=== PATIENT | male | born 1940 | race Caucasian/White ===

== ENCOUNTER 2023-02-12 21:31 | Inpatient (IN) | payer MEDICARE ==
[2023-02-13] MEDS ORDERED: Ondansetron ODT 4 MG TAB PO PRN (01:15)
[2023-02-13] MEDS ORDERED: Acetaminophen 650 MG Suppository PR PRN (01:15)
[2023-02-13] MEDS ORDERED: Ondansetron PF 4 MG/2 ML Vial IVP PRN (01:15)
[2023-02-13] MEDS ORDERED: Dextrose 50% Abboject 50 ML SYRINGE SLOW IVP PRN (01:18)
[2023-02-13] MEDS ORDERED: Dextrose 5% in Water 1,000 ML IV PRN (01:18)
[2023-02-13] MEDS ORDERED: HumaLOG 300 UNITS/3 ML VIAL SC PRN (01:18)
[2023-02-13] MEDS ORDERED: Morphine 4 MG/ML VIAL SLOW IVP PRN (01:19)
[2023-02-13] MEDS ORDERED: Sodium Chloride 0.9% 1,000 ML IV SCH (01:30)
[2023-02-13] MEDS: metroNIDAZOLE 500 MG in Premix Bag 1 BAG IVPB SCH ×2 (01:46→08:50)
[2023-02-13 03:22] VITALS: BMI 28.5
[2023-02-13 06:34] LABS: #Lymphocytes 1.5 thou/uL (1.20-3.40); #Monocytes 1.3 thou/uL (0.11-0.59); #Neutrophils 16.5 thou/uL (1.40-6.50); %Basophils 0.1 % (0.0-1.0); %Eosinophils 0.1 % (0.0-10.0); %Lymphocytes 7.8 % (21.0-51.0); %Monocytes 6.6 % (0.0-10.0); %Neutrophils 85.3 % (42.0-75.0); Hemoglobin 12.9 g/dL (14.0-18.0); Mean Corpuscular HGB CONC 32.7 g/dL (32.0-36.0); Mean Corpuscular Hemoglobin 32.2 pg (27.0-31.0); Mean Corpuscular Volume 98.6 fl (78.0-98.0); Platelet Count 230 10x3/uL (130-400); RBC Distribution Width 12.8 % (11.5-14.5); White Blood Cell (WBC) Count 19.3 10x3/uL (4.8-10.8)
[2023-02-13 06:36] LABS: Anion Gap 10 mmol/L (10-20); BUN (Urea Nitrogen) 17 mg/dL (8.4-25.7); Calc. Creatinine Clearance 63 mL/min (70-130); Calcium 8.4 mg/dL (7.8-10.44); Carbon Dioxide 23 mmol/L (23-31); Chloride 105 mmol/L (98-107); Estimated GFR 57; Glucose 110 mg/dL (83-110); Potassium 3.7 mmol/L (3.5-5.1); Sodium 134 mmol/L (136-145)
[2023-02-13] MEDS: Dextrose 5 % And 0.9 % NaCl 1,000 ML IV SCH ×2 (09:45→20:24)
[2023-02-13] MEDS: Carvedilol 3.125 MG TAB PO SCH ×2 (09:48→19:12)
[2023-02-13 09:56] LABS: SARS-CoV-2 NAA Rapid Test Not Detected (NotDetected)
[2023-02-13] MEDS ORDERED: Bupivacaine/Epinephrine 0.25% 30 ML VIAL ONE (09:56)
[2023-02-13] MEDS ORDERED: Clindamycin/D5W 900 MG in Premix Bag 1 BAG IVPB SCH (10:30)
[2023-02-13] MEDS ORDERED: fentaNYL PF 100 MCG/2 ML SYRINGE ONE (11:55)
[2023-02-13] MEDS ORDERED: SUGAMMADEX SODIUM 200 MG/2 ML VIAL ONE (11:55)
[2023-02-13] MEDS ORDERED: Clindamycin/D5W 900 mg/50 ml Premix Bag ONE (12:06)
[2023-02-13] MEDS ORDERED: NEOSTIGMINE 3 MG/3 ML SYR 3 MG/3 ML SYRINGE ONE (12:15)
[2023-02-13] MEDS ORDERED: Lidocaine 1% PF 5 ML VIAL ONE (12:15)
[2023-02-13] MEDS ORDERED: Rocuronium Bromide 10 MG/ML (10ML VIAL) ONE (12:15)
[2023-02-13] MEDS ORDERED: Phenylephrine 10 MG/ML VIAL ONE (12:15)
[2023-02-13] MEDS ORDERED: Ondansetron PF 4 MG/2 ML Vial ONE (12:15)
[2023-02-13] MEDS ORDERED: ePHEDrine 50 MG/ML VIAL ONE (12:15)
[2023-02-13] MEDS ORDERED: Glycopyrrolate 0.2 MG/ML 5 ML SYRINGE ONE (12:15)
[2023-02-13] MEDS ORDERED: PROPOFOL 200 MG/20 ML VIAL ONE (12:15)
[2023-02-13] MEDS ORDERED: Esmolol 100 MG/10 ML VIAL ONE ×2 (12:15→15:44)
[2023-02-13] MEDS ORDERED: Dexamethasone 20 MG/5 ML VIAL ONE (12:15)
[2023-02-13] MEDS ORDERED: FENTANYL 50 MCG/ML 1 ML VIAL ONE ×2 (15:24→15:35)
[2023-02-13] MEDS ORDERED: Morphine Sulfate 2 MG/ML SYRINGE SLOW IVP PRN (15:38)
[2023-02-13] MEDS ORDERED: Ondansetron HCl/PF 4 MG/2 ML Vial IVP PRN (15:38)
[2023-02-13] MEDS ORDERED: Promethazine HCl 25 MG/ML VIAL IM PRN (15:38)
[2023-02-13] MEDS ORDERED: Dexmedetomidine 200 MCG/2 ML VIAL ONE (15:47)
[2023-02-13] MEDS ORDERED: Labetalol HCl 100 MG/20 ML VIAL ONE (16:02)
[2023-02-13] MEDS ORDERED: Morphine 2 MG/ML VIAL ONE ×2 (16:24→16:46)
[2023-02-14] MEDS: Dextrose 5 % And 0.9 % NaCl 1,000 ML IV SCH (05:20)
[2023-02-14 06:07] LABS: Anion Gap 12 mmol/L (10-20); BUN (Urea Nitrogen) 18 mg/dL (8.4-25.7); Calc. Creatinine Clearance 59 mL/min (70-130); Calcium 8.5 mg/dL (7.8-10.44); Carbon Dioxide 25 mmol/L (23-31); Chloride 105 mmol/L (98-107); Estimated GFR 54; Glucose 294 mg/dL (83-110); Magnesium 1.8 mg/dL (1.6-2.6); Phosphorus 2.1 mg/dL (2.3-4.7); Potassium 4.7 mmol/L (3.5-5.1); Sodium 137 mmol/L (136-145)
[2023-02-14 06:19] LABS: Band 8 % (5-11); Hemoglobin 12.8 g/dL (14.0-18.0); Hypochromia SLIGHT = 6-15 cells (100X) (0-5/hpf); Lymphocytes 6 % (21-51); MDiff Complete? YES; Macrocytosis SLIGHT = 6-15 cells (100X) (0-5/hpf); Mean Corpuscular HGB CONC 31.8 g/dL (32.0-36.0); Mean Corpuscular Hemoglobin 31.9 pg (27.0-31.0); Mean Platelet Volume 9.5 fL (7.4-10.4); Monocytes 4 % (0-10); Neutrophil 82 % (42-75); Platelet Count 238 10x3/uL (130-400); Platelet Morphology Comment Appears Adequate; RBC Distribution Width 12.9 % (11.5-14.5); Red Blood Cell (RBC) Count 4.02 mill/uL (4.70-6.10); White Blood Cell (WBC) Count 17.9 10x3/uL (4.8-10.8)
[2023-02-14] MEDS: HumaLOG 300 UNITS/3 ML VIAL SC PRN (06:44)
[2023-02-14] MEDS: Carvedilol 3.125 MG TAB PO SCH ×2 (09:57→17:09)
[2023-02-14] MEDS: Lactated Ringer's 1,000 ML IV SCH (14:00)
[2023-02-14] MEDS: Ketorolac Tromethamine 30 MG/ML VIAL IVP PRN (17:12)
[2023-02-14] MEDS: Acetaminophen 325 MG TAB PO PRN (20:43)
[2023-02-14] MEDS: Famotidine/PF 20 mg/2ml Vial SLOW IVP SCH (20:44)
[2023-02-15] MEDS: Ketorolac Tromethamine 30 MG/ML VIAL IVP PRN (04:30)
[2023-02-15] MEDS: Lactated Ringer's 1,000 ML IV SCH (04:31)
[2023-02-15 07:47] LABS: #Lymphocytes 1.2 thou/uL (1.20-3.40); #Monocytes 0.8 thou/uL (0.11-0.59); #Neutrophils 9.9 thou/uL (1.40-6.50); %Basophils 0.1 % (0.0-1.0); %Eosinophils 0.2 % (0.0-10.0); %Lymphocytes 9.7 % (21.0-51.0); %Monocytes 6.4 % (0.0-10.0); %Neutrophils 83.6 % (42.0-75.0); Hemoglobin 11.4 g/dL (14.0-18.0); Mean Corpuscular HGB CONC 30.5 g/dL (32.0-36.0); Platelet Count 277 10x3/uL (130-400); RBC Distribution Width 12.9 % (11.5-14.5); Red Blood Cell (RBC) Count 3.66 mill/uL (4.70-6.10); White Blood Cell (WBC) Count 11.9 10x3/uL (4.8-10.8)
[2023-02-15] MEDS: Carvedilol 3.125 MG TAB PO SCH ×2 (07:57→17:31)
[2023-02-15] MEDS: Dextrose 5 % And 0.9 % NaCl 1,000 ML IV SCH ×2 (07:59→19:56)
[2023-02-15] MEDS: Famotidine/PF 20 mg/2ml Vial SLOW IVP SCH ×2 (08:01→19:57)
[2023-02-15 08:02] LABS: ALT (SGPT) 19 U/L (8-55); AST (SGOT) 33 U/L (5-34); Albumin 2.5 g/dL (3.4-4.8); Alkaline Phosphatase 53 U/L (40-110); Anion Gap 10 mmol/L (10-20); BUN (Urea Nitrogen) 27 mg/dL (8.4-25.7); Bilirubin, Total 0.6 mg/dL (0.2-1.2); Calc. Creatinine Clearance 60 mL/min (70-130); Calcium 8.3 mg/dL (7.8-10.44); Carbon Dioxide 27 mmol/L (23-31); Chloride 104 mmol/L (98-107); Estimated GFR 54; Globulin 2.8 g/dL (2.4-3.5); Glucose 154 mg/dL (83-110); Protein, Total 5.3 g/dL (5.8-8.1); Sodium 137 mmol/L (136-145)
[2023-02-16 06:12] LABS: #Eosinphils 0.1 thou/uL (0.0-0.7); #Lymphocytes 1.1 thou/uL (1.20-3.40); #Monocytes 0.7 thou/uL (0.11-0.59); #Neutrophils 6.7 thou/uL (1.40-6.50); %Basophils 0.2 % (0.0-1.0); %Eosinophils 0.9 % (0.0-10.0); %Lymphocytes 12.2 % (21.0-51.0); %Monocytes 8.6 % (0.0-10.0); %Neutrophils 78.1 % (42.0-75.0); Hemoglobin 12.3 g/dL (14.0-18.0); Mean Corpuscular HGB CONC 31.8 g/dL (32.0-36.0); Mean Platelet Volume 8.4 fL (7.4-10.4); Platelet Count 275 10x3/uL (130-400); RBC Distribution Width 12.8 % (11.5-14.5); Red Blood Cell (RBC) Count 3.85 mill/uL (4.70-6.10); White Blood Cell (WBC) Count 8.6 10x3/uL (4.8-10.8)
[2023-02-16 06:33] LABS: ALT (SGPT) 19 U/L (8-55); AST (SGOT) 30 U/L (5-34); Albumin 2.5 g/dL (3.4-4.8); Alkaline Phosphatase 56 U/L (40-110); Anion Gap 9 mmol/L (10-20); BUN (Urea Nitrogen) 17 mg/dL (8.4-25.7); Bilirubin, Total 0.7 mg/dL (0.2-1.2); Calc. Creatinine Clearance 78 mL/min (70-130); Calcium 8.3 mg/dL (7.8-10.44); Carbon Dioxide 27 mmol/L (23-31); Chloride 108 mmol/L (98-107); Estimated GFR 74; Globulin 2.8 g/dL (2.4-3.5); Glucose 95 mg/dL (83-110); Potassium 4.2 mmol/L (3.5-5.1); Protein, Total 5.3 g/dL (5.8-8.1); Sodium 140 mmol/L (136-145)
[2023-02-16] MEDS: Famotidine/PF 20 mg/2ml Vial SLOW IVP SCH ×2 (08:24→20:35)
[2023-02-16] MEDS: Carvedilol 3.125 MG TAB PO SCH ×2 (08:24→17:24)
[2023-02-16] MEDS: Dextrose 5 % And 0.9 % NaCl 1,000 ML IV SCH (08:30)
[2023-02-16] MEDS ORDERED: FLU VACC QS2022-23(65YR UP)/PF 240 MCG/0.7 ML SYRINGE IM ONE (09:00)
[2023-02-17] MEDS: Dextrose 5 % And 0.9 % NaCl 1,000 ML IV SCH (00:36)
[2023-02-17] MEDS: HumaLOG 300 UNITS/3 ML VIAL SC PRN (06:07)
[2023-02-17 06:30] LABS: #Basophils 0.1 thou/uL (0.0-0.2); #Eosinphils 0.2 thou/uL (0.0-0.7); #Lymphocytes 1.2 thou/uL (1.20-3.40); #Monocytes 0.5 thou/uL (0.11-0.59); #Neutrophils 6.3 thou/uL (1.40-6.50); %Basophils 0.8 % (0.0-1.0); %Eosinophils 2.4 % (0.0-10.0); %Lymphocytes 14.6 % (21.0-51.0); %Monocytes 6.5 % (0.0-10.0); %Neutrophils 75.6 % (42.0-75.0); Hemoglobin 12.5 g/dL (14.0-18.0); Mean Corpuscular HGB CONC 31.5 g/dL (32.0-36.0); Mean Corpuscular Hemoglobin 31.7 pg (27.0-31.0); Mean Platelet Volume 9.6 fL (7.4-10.4); Platelet Count 272 10x3/uL (130-400); RBC Distribution Width 12.7 % (11.5-14.5); Red Blood Cell (RBC) Count 3.95 mill/uL (4.70-6.10); White Blood Cell (WBC) Count 8.3 10x3/uL (4.8-10.8)
[2023-02-17 06:51] LABS: Phosphorus 1.6 mg/dL (2.3-4.7)
[2023-02-17 06:54] LABS: ALT (SGPT) 20 U/L (8-55); AST (SGOT) 26 U/L (5-34); Albumin 2.4 g/dL (3.4-4.8); Alkaline Phosphatase 60 U/L (40-110); Anion Gap 10 mmol/L (10-20); BUN (Urea Nitrogen) 10 mg/dL (8.4-25.7); Bilirubin, Total 0.7 mg/dL (0.2-1.2); Calc. Creatinine Clearance 94 mL/min (70-130); Calcium 8.3 mg/dL (7.8-10.44); Carbon Dioxide 27 mmol/L (23-31); Chloride 106 mmol/L (98-107); Estimated GFR 88; Globulin 2.9 g/dL (2.4-3.5); Glucose 154 mg/dL (83-110); Magnesium 2.1 mg/dL (1.6-2.6); Protein, Total 5.3 g/dL (5.8-8.1); Sodium 139 mmol/L (136-145)
[2023-02-17] MEDS: Carvedilol 3.125 MG TAB PO SCH ×2 (09:43→21:41)
[2023-02-17] MEDS: Famotidine/PF 20 mg/2ml Vial SLOW IVP SCH ×2 (09:43→21:43)
[2023-02-17] MEDS ORDERED: Sodium Phosphate 30 MMOL in Sodium Chloride 0.9% 250 ML 250 ML IVPB SCH (10:00)
[2023-02-18 06:21] LABS: #Eosinphils 0.2 thou/uL (0.0-0.7); #Lymphocytes 1.5 thou/uL (1.20-3.40); #Monocytes 0.7 thou/uL (0.11-0.59); #Neutrophils 8.2 thou/uL (1.40-6.50); %Basophils 0.4 % (0.0-1.0); %Eosinophils 2.2 % (0.0-10.0); %Lymphocytes 14.3 % (21.0-51.0); %Monocytes 6.4 % (0.0-10.0); %Neutrophils 76.7 % (42.0-75.0); Hemoglobin 13.1 g/dL (14.0-18.0); Mean Corpuscular HGB CONC 33.3 g/dL (32.0-36.0); Mean Corpuscular Hemoglobin 32.8 pg (27.0-31.0); Mean Corpuscular Volume 98.5 fl (78.0-98.0); Mean Platelet Volume 8.4 fL (7.4-10.4); Platelet Count 339 10x3/uL (130-400); RBC Distribution Width 12.7 % (11.5-14.5); Red Blood Cell (RBC) Count 3.98 mill/uL (4.70-6.10); White Blood Cell (WBC) Count 10.7 10x3/uL (4.8-10.8)
[2023-02-18 06:39] LABS: ALT (SGPT) 19 U/L (8-55); AST (SGOT) 28 U/L (5-34); Albumin 2.7 g/dL (3.4-4.8); Alkaline Phosphatase 59 U/L (40-110); Anion Gap 11 mmol/L (10-20); BUN (Urea Nitrogen) 6 mg/dL (8.4-25.7); Bilirubin, Total 0.7 mg/dL (0.2-1.2); Calc. Creatinine Clearance 93 mL/min (70-130); Calcium 8.5 mg/dL (7.8-10.44); Carbon Dioxide 28 mmol/L (23-31); Chloride 104 mmol/L (98-107); Estimated GFR 88; Globulin 3.3 g/dL (2.4-3.5); Glucose 147 mg/dL (83-110); Potassium 4.3 mmol/L (3.5-5.1); Sodium 139 mmol/L (136-145)
[2023-02-18] MEDS: Carvedilol 3.125 MG TAB PO SCH ×2 (07:57→18:47)
[2023-02-18] MEDS: Acetaminophen 325 MG TAB PO PRN ×2 (07:57→22:41)
[2023-02-18] MEDS ORDERED: Bisacodyl 10 MG SUPP PR PRN (10:23)
[2023-02-18] MEDS: Polyethylene Glycol 3350 17 GM Packet PO SCH (10:35)
[2023-02-19] MEDS ORDERED: Furosemide 20 MG/2 ML VIAL SLOW IVP SCH (08:45)
[2023-02-19] MEDS: Carvedilol 3.125 MG TAB PO SCH ×2 (09:22→17:18)
[2023-02-19] MEDS: Acetaminophen 325 MG TAB PO PRN ×2 (09:22→20:46)
[2023-02-19] MEDS: Polyethylene Glycol 3350 17 GM Packet PO SCH (09:25)
[2023-02-20 07:09] LABS: #Eosinphils 0.3 thou/uL (0.0-0.7); #Lymphocytes 1.7 thou/uL (1.20-3.40); #Monocytes 0.9 thou/uL (0.11-0.59); #Neutrophils 8.2 thou/uL (1.40-6.50); %Basophils 0.4 % (0.0-1.0); %Eosinophils 2.6 % (0.0-10.0); %Lymphocytes 15.4 % (21.0-51.0); %Neutrophils 73.6 % (42.0-75.0); Hemoglobin 12.8 g/dL (14.0-18.0); Mean Corpuscular HGB CONC 32.4 g/dL (32.0-36.0); Mean Corpuscular Hemoglobin 32.4 pg (27.0-31.0); Mean Corpuscular Volume 99.9 fl (78.0-98.0); Mean Platelet Volume 8.4 fL (7.4-10.4); Platelet Count 320 10x3/uL (130-400); RBC Distribution Width 12.7 % (11.5-14.5); Red Blood Cell (RBC) Count 3.94 mill/uL (4.70-6.10); White Blood Cell (WBC) Count 11.1 10x3/uL (4.8-10.8)
[2023-02-20 07:27] LABS: Anion Gap 10 mmol/L (10-20); BUN (Urea Nitrogen) 12 mg/dL (8.4-25.7); Calc. Creatinine Clearance 85 mL/min (70-130); Calcium 8.6 mg/dL (7.8-10.44); Carbon Dioxide 33 mmol/L (23-31); Chloride 98 mmol/L (98-107); Estimated GFR 83; Glucose 162 mg/dL (83-110); Magnesium 1.9 mg/dL (1.6-2.6); Phosphorus 2.2 mg/dL (2.3-4.7); Potassium 4.2 mmol/L (3.5-5.1); Sodium 137 mmol/L (136-145)
[2023-02-20] MEDS ORDERED: Sodium Phosphate 30 MMOL in Sodium Chloride 0.9% 250 ML 250 ML IVPB SCH (08:30)
[2023-02-20] MEDS: Carvedilol 3.125 MG TAB PO SCH (09:27)
[2023-02-20] MEDS: Acetaminophen 325 MG TAB PO PRN ×2 (09:28→15:33)
[2023-02-20] MEDS: Polyethylene Glycol 3350 17 GM Packet PO SCH (09:28)
[2023-02-20 16:30] VITALS: BP 143/70; TEMP 98.3
== END 2023-02-20 17:53 | disposition home health service (06) | DRG 415 ==
LOC: EDBD 23:59 → SURG A 23:59
PROVIDERS: ADMIT Internal Medicine; ATTEND Internal Medicine
PROC: 0FT40ZZ Resection of Gallbladder, Open Approach (ICD-10-PCS; principal; 2023-02-12)
PROC: 0DJ04ZZ Inspection of Upper Intestinal Tract, Percutaneous Endoscopic Approach (ICD-10-PCS; 2023-02-12)
PROC: 0DB80ZZ Excision of Small Intestine, Open Approach (ICD-10-PCS; 2023-02-12)
PROC: 8E0W0CZ Robotic Assisted Procedure of Trunk Region, Open Approach (ICD-10-PCS; 2023-02-12)
DX: K80.00 Calculus of gallbladder with acute cholecystitis without obstruction (principal); K91.71 Accidental puncture and laceration of a digestive system organ or structure during a digestive system procedure; N17.9 Acute kidney failure, unspecified; Z20.822 Contact with and (suspected) exposure to COVID-19; I10 Essential (primary) hypertension; N40.0 Benign prostatic hyperplasia without lower urinary tract symptoms; N28.1 Cyst of kidney, acquired; E78.5 Hyperlipidemia, unspecified; Y83.6 Removal of other organ (partial) (total) as the cause of abnormal reaction of the patient, or of later complication, without mention of misadventure at the time of the procedure; E11.649 Type 2 diabetes mellitus with hypoglycemia without coma; Z88.0 Allergy status to penicillin; Z28.21 Immunization not carried out because of patient refusal; Z53.31 Laparoscopic surgical procedure converted to open procedure; Z79.899 Other long term (current) drug therapy; Z79.84 Long term (current) use of oral hypoglycemic drugs; Z90.49 Acquired absence of other specified parts of digestive tract; Z90.89 Acquired absence of other organs; Z90.79 Acquired absence of other genital organ(s); Z87.891 Personal history of nicotine dependence; Z83.79 Family history of other diseases of the digestive system
CPT/HCPCS: 36415; 36416; 74250; 80048; 80053; 83735; 84100; 85025; 88304; 88307; A4649; C1776; J1100; J1611; J1642; J1650; J1815; J1885; J1940; J2272; J2370; J2405; J2704; J3010; J3490; J7042; J7050; J7120; S0028; U0002